=== PATIENT | male | born 1990 | race African-American/Black ===

== ENCOUNTER 2017-05-04 03:23 | Emergency (ER) | payer SELFPAY | END 2017-05-04 05:25 | disposition home or self-care (01) | LOC: ER 03:23 | DX: R50.9 Fever, unspecified (principal); R05 Cough; J02.9 Acute pharyngitis, unspecified; J34.89 Other specified disorders of nose and nasal sinuses; M79.1 Myalgia; F12.10 Cannabis abuse, uncomplicated | CPT/HCPCS: 99283 ==

== ENCOUNTER 2017-07-29 18:10 | Emergency (ER) | payer SELFPAY | END 2017-07-29 18:40 | disposition home or self-care (01) | LOC: ER 18:10 | DX: R30.0 Dysuria (principal); F12.10 Cannabis abuse, uncomplicated; Z72.52 High risk homosexual behavior | CPT/HCPCS: 87491; 87591; 99284 ==

== ENCOUNTER 2017-08-13 10:44 | Emergency (ER) | payer SELFPAY ==
[2017-08-13] MEDS: cefTRIAXone IM 250 MG VIAL IM (11:32)
[2017-08-13] MEDS: metroNIDAZOLE 500 MG TABLET PO (11:32)
[2017-08-13] MEDS: AZITHROMYCIN 250 MG TABLET. PO (11:32)
[2017-08-13 11:39] LABS: BILIRUBIN,URINE NEGATIVE (NEG); CLARITY,URINE CLEAR; COLOR,URINE AMBER; GLUCOSE,URINE NEGATIVE (NEG); NITRITE,URINE NEGATIVE (NEG); PH,URINE 5.5; PROTEIN,URINE NEGATIVE (NEG-TRACE)
[2017-08-13 11:45] LABS: BACTERIA,URINE FEW /HPF (0-FEW); RBC,URINE 0 /HPF (0-2); SQUAMOUS EPITHELIAL CELL,UR FEW /LPF
== END 2017-08-13 11:55 | disposition home or self-care (01) ==
LOC: ER 10:44
DX: N48.89 Other specified disorders of penis (principal)
CPT/HCPCS: 81001; 87491; 87591; 96372; 99284; J0696; Q0144

== ENCOUNTER 2017-11-20 19:13 | Emergency (ER) | payer BC ==
[2017-11-20] MEDS: IBUPROFEN 800 MG TABLET. PO (21:10)
== END 2017-11-20 21:15 | disposition home or self-care (01) ==
LOC: ER 19:13
DX: R07.89 Other chest pain (principal)
CPT/HCPCS: 71045; 93005; 99284

== ENCOUNTER 2018-05-03 17:04 | Emergency (ER) | payer BC ==
[~2018-05-03] VITALS: Ht 182.9 cm; Wt 90.7 kg
[~2018-05-03 17:04] MED LIST: AZIT500T PO; CEFI400C PO; DOXY100T9 PO; IBUP-1060 PO; METR500T PO; OSEL75CA PO
[2018-05-03 18:53] VITALS: BP 132/73
[2018-05-03] MEDS ORDERED: AZITHROMYCIN 250 MG TABLET. PO ONE (19:30)
[2018-05-03] MEDS ORDERED: metroNIDAZOLE 500 MG TABLET PO ONE (19:30)
[2018-05-03] MEDS ORDERED: cefTRIAXone IM 250 MG VIAL IM ONE (19:30)
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
[2018-05-03 20:23] LABS: BILIRUBIN,URINE NEGATIVE (NEG); CLARITY,URINE CLOUDY; COLOR,URINE YELLOW; NITRITE,URINE NEGATIVE (NEG); PROTEIN,URINE NEGATIVE (NEG-TRACE)
[2018-05-03 20:45] LABS: AMORPHOUS SEDIMENT,UR PRESENT /HPF; BACTERIA,URINE FEW /HPF (0-FEW); RBC,URINE OCC /HPF (0-2); SQUAMOUS EPITHELIAL CELL,UR FEW /LPF
== END 2018-05-03 20:24 | disposition home or self-care (01) ==
LOC: ER 17:04
DX: Z20.2 Contact with and (suspected) exposure to infections with a predominantly sexual mode of transmission (principal)
CPT/HCPCS: 81001; 87491; 87591; 96372; 99283; J0696; Q0144; 99285-25

== ENCOUNTER 2018-05-19 01:56 | Emergency (ER) | payer BC ==
[~2018-05-19] VITALS: Ht 182.9 cm; Wt 85.3 kg
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
[2018-05-19 02:29] LABS: BASO # 0.1 x10^3/uL (0.0-0.2); BASO % 0 % (0-3); EOS % 0 % (0-3); HEMATOCRIT 41.3 % (39.0-53.0); HEMOGLOBIN 13.1 g/dL (13.0-17.5); LYMPH % 4 % (24-48); MEAN CORPUSCULAR HEMOGLOBIN 19 pg (25-35); MEAN CORPUSCULAR HGB CONC 32 g/dL (31-37); MEAN CORPUSCULAR VOLUME 59 fL (79-100); MONO % 4 % (0-9); NEUT # 23.7 x10^3uL (1.8-7.7); NEUT % 92 % (31-73); PLATELET COUNT 203 x10^3/uL (140-400); RED BLOOD COUNT 6.97 x10^6/uL (4.30-5.70); RED CELL DISTRIBUTION WIDTH 16.5 % (11.5-14.5); WHITE BLOOD COUNT 25.7 x10^3/uL (4.0-11.0)
[2018-05-19 02:42] LABS: CALCIUM 9.1 mg/dL (8.5-10.1); CREATININE 1.1 mg/dL (0.7-1.3); GFR 95.1; POTASSIUM 3.6 mmol/L (3.5-5.1)
[2018-05-19] MEDS: FAMOTIDINE 20 MG/2 ML VIAL IVP ONE (02:42)
[2018-05-19] MEDS: ONDANSETRON PF 4 MG/2 ML VIAL. IV ONE (02:42)
[2018-05-19] MEDS: IV NORMAL SALINE 1000ML BAG 1,000 ML IV ONE ×2 (02:43→04:00)
[2018-05-19] MEDS: KETOROLAC 15 MG/ML VIAL. IV ONE (02:43)
[2018-05-19 02:46] LABS: ALBUMIN 4.1 g/dL (3.4-5.0); ALBUMIN/GLOBULIN RATIO 1.2 (1.0-1.7); MAGNESIUM 1.7 mg/dL (1.8-2.4); TOTAL PROTEIN 7.5 g/dL (6.4-8.2)
[2018-05-19 03:07] LABS: BILIRUBIN,URINE NEGATIVE (NEG); CLARITY,URINE CLEAR; COLOR,URINE YELLOW; NITRITE,URINE NEGATIVE (NEG); PH,URINE 7.5; PROTEIN,URINE NEGATIVE (NEG-TRACE)
[2018-05-19 03:19] LABS: BACTERIA,URINE 0 /HPF (0-FEW); RBC,URINE 0 /HPF (0-2); SQUAMOUS EPITHELIAL CELL,UR FEW /LPF
[2018-05-19 03:24] LABS: INFLUENZA A PATIENT NEGATIVE (NEGATIVE); INFLUENZA B PATIENT NEGATIVE (NEGATIVE)
[2018-05-19 03:33] LABS: % ATYL 3 % (0-0); % BANDS 3 % (0-9); % LYMPHS 16 % (24-48); % MONOS 3 % (0-10); % SEGS 75 % (35-66)
[2018-05-19 03:34] LABS: ANISOCYTOSIS SLIGHT; HYPOCHROMIA MARKED; MICROCYTOSIS MARKED; PLT ESTIMATE ADEQUATE (ADEQUATE); POLYCHROMASIA SLIGHT
[2018-05-19 03:35] LABS: SMUDGE CELLS PRESENT; SPHEROCYTES FEW; TARGET CELLS MANY
[2018-05-19] MEDS ORDERED: MAGNESIUM SULFATE 2GM 50 ML IV ONE (03:48)
[2018-05-19] MEDS: IOHEXOL 300 MG/ML 100ML VIAL. IV ONE (03:57)
[2018-05-19] MEDS: MAGNESIUM SULFATE 2GM 50 ML IV ONE (04:02)
--- NOTE | 2018-05-19 04:21 | RAD ---
EXAM: CT ABDOMEN/PELVIS WITH CONTRAST. HISTORY: Abdominal pain. Nausea/vomiting. TECHNIQUE: Computed tomography of the abdomen and pelvis was performed after the intravenous administration of 75 mL Omnipaque 300. COMPARISON: None. FINDINGS: Lung windows through the visualized portions of the bases reveal mild atelectasis. Bone windows reveal no suspicious lesions. A a cyst in hepatic segment 7 measures 9 mm. The gallbladder is surgically absent. The spleen measures 16 cm. The pancreas, adrenal glands and kidneys are unremarkable. There are no pathologically enlarged lymph nodes. Mild colonic wall thickening is consistent with diffuse colitis. The appendix is not inflamed. There is mild distention of small bowel loops in the midabdomen without a clear transition point. A wire-like device projects within the subcutaneous fat of the right anterior abdominal wall. IMPRESSION: 1. Mild diffuse colitis. Infectious or inflammatory etiologies are most likely in this distribution. 2. Mild small bowel distention in the lower abdomen without a clear transition point suggests an additional component of enteritis. 3. Moderate splenomegaly. *One or more of the following individualized dose reduction techniques were utilized for this examination: 1. Automated exposure control. 2. Adjustment of the mA and/or kV according to patient size. 3. Use of iterative reconstruction technique. Electronically signed by: Luz Hahn MD (05/19/2018 4:16 AM) [id number]
[2018-05-19] MEDS ORDERED: HYOS0.1265 SL (04:40)
[2018-05-19] MEDS ORDERED: FAMO-63 PO (04:40)
[2018-05-19] MEDS ORDERED: METR500T PO (04:40)
[2018-05-19] MEDS ORDERED: ONDA4TAB12 PO (04:40)
[2018-05-19] MEDS ORDERED: CIPR500T94 PO (04:40)
[2018-05-19 05:25] VITALS: BP 114/61
[2018-05-19] MEDS: CIPROFLOXACIN HCL 250 MG TABLET. PO ONE (05:33)
[2018-05-19] MEDS: metroNIDAZOLE 500 MG TABLET PO ONE (05:33)
== END 2018-05-19 05:36 | disposition home or self-care (01) ==
LOC: ER 01:56
DX: K52.89 Other specified noninfective gastroenteritis and colitis (principal); M79.18 Myalgia, other site; R50.9 Fever, unspecified; E80.6 Other disorders of bilirubin metabolism; D72.828 Other elevated white blood cell count; M25.50 Pain in unspecified joint
CPT/HCPCS: 36415; 74177; 80053; 81001; 83690; 83735; 85007; 85025; 87086; 87804; 96361; 96365; 96375; 99284; J1885; J2405; J3475; J3490; J7030; Q9967

== ENCOUNTER 2019-05-17 07:28 | Emergency (ER) | payer BC ==
[~2019-05-17] VITALS: Ht 182.9 cm; Wt 86.3 kg
[~2019-05-17 07:28] MED LIST changes: +CIPR500T94 PO; +DOXY-96 PO; -DOXY100T9 PO; +FAMO-63 PO; +HYOS0.1265 SL; +ONDA4TAB12 PO
[2019-05-17 07:45] VITALS: BP 134/89
[2019-05-17 08:25] LABS: BILIRUBIN,URINE NEGATIVE (NEG); CLARITY,URINE CLEAR; COLOR,URINE YELLOW; NITRITE,URINE NEGATIVE (NEG); PROTEIN,URINE NEGATIVE (NEG-TRACE)
[2019-05-17 08:41] LABS: BACTERIA,URINE 0 /HPF (0-FEW); RBC,URINE 0 /HPF (0-2); SQUAMOUS EPITHELIAL CELL,UR FEW /LPF; WBC,URINE OCC /HPF (0-4)
[2019-05-17] MEDS ORDERED: VALA10005 PO (08:42)
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
[2019-05-17] MEDS ORDERED: AZITHROMYCIN 250 MG TABLET. PO ONE (08:45)
[2019-05-17] MEDS ORDERED: cefTRIAXone IM 250 MG VIAL IM ONE (08:45)
== END 2019-05-17 09:00 | disposition home or self-care (01) ==
LOC: ER 07:28
DX: N48.89 Other specified disorders of penis (principal); Z20.2 Contact with and (suspected) exposure to infections with a predominantly sexual mode of transmission; Z90.49 Acquired absence of other specified parts of digestive tract; Z98.890 Other specified postprocedural states
CPT/HCPCS: 81001; 87491; 87591; 96372; 99284; J0696; Q0144

== ENCOUNTER 2020-11-11 12:04 | Emergency (ER) | payer SELFPAY ==
[~2020-11-11] VITALS: Ht 182.9 cm; Wt 93.2 kg
[~2020-11-11 12:04] MED LIST changes: +NAPR-514 PO; +VALA10005 PO
--- NOTE | 2020-11-11 13:21 | RAD ---
XR CHEST 1V CLINICAL INDICATIONS: Reason: SHORTNESS OF BREATH Findings: No acute lung infiltrate or pleural effusion or pulmonary edema or lung mass or pneumothora x is seen. The heart size, pulmonary vasculature, mediastinum and both tika are unremarkable. IMPRESSION: No acute radiographic abnormality is seen. Electronically signed by: Ed Gama MD (11/11/2020 1:18 PM) [id number]
[2020-11-11 13:56] LABS: BILIRUBIN,URINE SMALL (NEG); CLARITY,URINE CLEAR; COLOR,URINE AMBER; NITRITE,URINE NEGATIVE (NEG); PROTEIN,URINE 30 mg/dL (NEG-TRACE)
[2020-11-11 14:09] LABS: BACTERIA,URINE 0 /HPF (0-FEW); RBC,URINE OCC /HPF (0-2); WBC,URINE OCC /HPF (0-4)
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
[2020-11-11 14:42] VITALS: BP 122/75
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
== END 2020-11-11 15:00 | disposition home or self-care (01) ==
LOC: ER 12:04
DX: U07.1 COVID-19 (principal); E86.0 Dehydration; Z87.891 Personal history of nicotine dependence; Z90.49 Acquired absence of other specified parts of digestive tract
CPT/HCPCS: 71045; 74018; 81001; 99284; 99285